=== PATIENT | male | born 1975 ===

== ENCOUNTER 2019-12-05 08:42 | Emergency (ER) | payer SELFPAY ==
[2019-12-05 09:14] LABS: Bilirubin Negative (Negative); Blood, Urine Negative (Negative); Glucose, Urine (Dipstick) Negative (Negative); Leukocyte Negative (Negative); Nitrite Negative (Negative); Protein, Urine (Dipstick) Trace mg/dL (Neg-Trace); Urobilinogen 0.2 mg/dL (Less than 2)
[2019-12-05 09:24] LABS: Clarity Turbid (Clear)
[2019-12-05 09:25] LABS: RBC/HPF 0-3 HPF (0-3); WBC/HPF 0-3 HPF (0-3)
[2019-12-05 09:26] LABS: Bacteria/HPF None Seen HPF (None Seen); Squamous Epithelial 0-3 HPF (0-3)
[2019-12-05] MEDS ORDERED: cefTRIAXone\\ROCEPHIN 250 MG VIAL ONE (10:02)
[2019-12-05] MEDS ORDERED: Azithromycin 250 MG TAB ONE (10:02)
[2019-12-05] MEDS ORDERED: Lidocaine 1% PF 5 ML VIAL ONE (10:02)
[2019-12-05] MEDS ORDERED: Ondansetron ODT 4 MG TAB ONE (10:09)
[2019-12-07 22:07] LABS: Chlamydia trachomatis by NAA Negative (Negative)
== END 2019-12-05 10:29 | disposition home or self-care (01) ==
LOC: ERS 08:42
DX: N34.2 Other urethritis (principal)
CPT/HCPCS: 81003; 87086; 87491; 87591; 96372; 99284; J0696; J2001; Q0162